=== PATIENT | female | born 1950 | race Caucasian/White ===

== ENCOUNTER 2022-07-20 07:00 | Outpatient (CLI) | payer MEDICARE, OTHER | END 2022-07-20 23:59 | disposition home or self-care (01) | LOC: LAB.S 07:00 | PROVIDERS: ATTEND Physician Assistant Medical | DX: J02.9 Acute pharyngitis, unspecified (principal) | CPT/HCPCS: 87070 ==

== ENCOUNTER 2023-11-11 08:00 | Outpatient (CLI) | payer MEDICARE, OTHER ==
--- NOTE | 2023-11-11 12:13 | XRAY Report ---
PROCEDURE: Chest 2V INDICATIONS: LOWER RESPIRATORY INFECTION/COUGH TECHNIQUE: 2 views of the chest were acquired. COMPARISON: None. FINDINGS: Surgical changes and devices: None. Lungs and pleura: No pleural effusions or pneumothorax. Lungs are clear. Mediastinum: Mediastinal contours appear normal. Heart size is enlarged. Bones and chest wall: No suspicious bony lesions. Overlying soft tissues appear unremarkable. IMPRESSION: No acute cardiopulmonary process. Reviewed by: Radha Givens MD on 11/11/2023 12:12 PM PDT Approved by: Radha Givens MD on 11/11/2023 12:12 PM PDT Station ID: [id number]
== END 2023-11-11 23:59 | disposition home or self-care (01) ==
LOC: DI.S 08:00
PROVIDERS: ATTEND Registered Nurse
DX: J22 Unspecified acute lower respiratory infection (principal); R05.1 Acute cough

== ENCOUNTER 2024-02-03 10:47 | Outpatient (CLI) | payer MEDICARE, OTHER ==
--- NOTE | 2024-02-03 12:05 | XRAY Report ---
PROCEDURE: Ribs w/PA Chest 3+V LT INDICATIONS: RIB PAIN, LEFT SIDED TECHNIQUE: 2 views of the ribs were acquired, along with a single view chest. COMPARISON: 11/11/2023. FINDINGS: Surgical changes and devices: None. Bones and chest wall: No fractures or dislocations. No suspicious bony lesions. Overlying soft tis sues appear unremarkable. Lungs and pleura: No pleural effusions or pneumothorax. Lungs appear clear. Mediastinum: Mediastinal contours appear normal. Heart size is normal. IMPRESSION: No displaced rib fracture or pneumothorax. Reviewed by: Renny Mathews MD on 02/03/2024 12:03 PM PDT Approved by: Renny Mathews MD on 02/03/2024 12:03 PM PDT Station ID: [id number]
== END 2024-02-03 10:48 | disposition home or self-care (01) ==
LOC: DI 10:47
PROVIDERS: ATTEND Registered Nurse
DX: R07.81 Pleurodynia (principal)